=== PATIENT | male | born 1960 | race American Indian/Alaskan Native ===

== ENCOUNTER 2018-12-28 08:18 | Day surgery (SDC) | payer OTHER ==
--- NOTE | 2018-12-28 07:16 | Short Stay Summary ---
Short Stay Documentation Date of service: 12/28/18 - History H&P: obtained from office - Allergies and Medications Current Medications: Allergies No Known Allergies Allergy (Verified 12/24/18 10:14) Home Medications Medication Instructions Recorded Confirmed Last Taken Type Bimatoprost [Lumigan 0.01%] 1 drop OP QPM 12/24/18 12/24/18 Unknown History Bupropion HCl [Bupropion HCl Sr] 150 mg PO BID 12/24/18 12/24/18 Unknown History Ibuprofen [Motrin] 800 mg PO Q8HR PRN 12/24/18 12/24/18 Unknown History Active Medications Celecoxib (Celebrex) 200 mg PO PREOP NR Stop: 12/28/18 23:45 Gabapentin (Neurontin) 900 mg PO PREOP NR Stop: 12/28/18 23:45 Lactated Ringer's (Lactated Ringers) 1,000 mls @ 42 mls/hr IV DIRECT JACOB Cefazolin Sodium (Ancef/Sterile Water 2 Gm/20 Ml) 2 gm in 20 mls @ 80 mls/hr IV PREOP NR; Protocol Stop: 12/28/18 23:45 - Physical exam General appearance: no acute distress Lungs: Normal air movement Male Genitourinary: right inguinal hernia Neurological: Normal speech - Brief post op/procedure progress note Date of procedure: 12/28/18 (dictation:[id number]) Pre-op diagnosis: RIH Post-op diagnosis: other (BIH) Procedure: robotic assisted BIH repair IVF 1L EBL min Anesthesia: GETA Findings: bilateral inguinal hernias Surgeon: MISBAH JARAMILLO (Asst: Viviana Gonzalez) Estimated blood loss: minimal Pathology: list (cord lipoma) Specimen disposition: to lab Condition: stable - Hospital course Hospital course: required extended stay in PACU due to elevated BP. - Disposition Condition at discharge: Stable Disposition: DC-01 TO HOME OR SELFCARE Short Stay Discharge Plan Diet: regular Wound: open to air, keep clean and dry, per your surgeon's advice Special Instructions: no heavy lifting Additional Instructions: OPEN TO AIR. FOLLOW SURGEON INSTRUCTION. Post Operative Instructions No driving until cleared by surgeon. May shower tomorrow. Pat dry the wound or wounds. After surgery, start with a light diet. Consider having a liquid diet first. If you do well, you can advance to a regular diet as you feel comfortable. Apply an ice pack to the wound or wounds for 10-20 minutes at a time. Do this at least 4-5 times a day. You can do it more if he would like. Alternate the use of ibuprofen and Tylenol for the first 2 days. I want you to take these on a scheduled basis. Take 600 mg of ibuprofen every 6 hours. Take 500 mg of Tylenol every 6 hours. You should alternate these 2 medicines. In other words, beginning with the ibuprofen. After 3 hours, take the Tylenol. Keep alternating the 2 drugs every 3 hours. Do this on a scheduled basis for the first 2 days. After that, you can take them as needed. It is very important that you use the prescription pain medicine only for very severe pain. Do not take the prescription medicine before you try using the ibuprofen and Tylenol. We will call you in a couple of days to see how youre doing. If you have any questions or concerns, always feel free to call the clinic at any time. NO HEAVY LIFTING. WOUND:KEEP CLEAN AND DRY.OPEN TO AIR. FOLLOW SURGEON INSTRUCTION.DO NOT RUB OR SCRUB INCISION SITE. NO POOLS OR BATH. OR LAKES. CALL YOUR PCP FOR HIGH BLOOB PRESSURE. Follow up with: [facility] [Primary Care Provider] - 7 Days MISBAH JARAMILLO MD [Staff Physician] - 7 Days Forms: Outpatient Surgery DC Inst. Prescriptions: HYDROcodone/APAP 5-325 [[place] 5/325] 1 each PO Q6HR PRN #15 tablet PRN Reason: Pain , Severe (7-10)
[~2018-12-28 08:18] MED LIST: ANCEF/STERILE WATER 2 GM/20 ML 2 GM/20 ML SYRINGE IV NR; LACTATED RINGERS 1,000 ML IV SCH; NEURONTIN PO NR; TYLENOL PO ONE
--- NOTE | 2018-12-28 09:53 | Anesthesia Day of Surgery ---
Anesthesia Day of Surgery - Day of Surgery Patient Examined: Yes Patient H&P Reviewed: Yes Patient is NPO: Yes
[2018-12-28] MEDS ORDERED: DILAUDID ONE ×2 (09:54→13:44)
[2018-12-28] MEDS ORDERED: XYLOCAINE MPF 2% ONE (09:54)
[2018-12-28] MEDS ORDERED: ZEMURON IV ONE (09:54)
[2018-12-28] MEDS ORDERED: DIPRIVAN 10 MG/ML IV ONE (09:54)
--- NOTE | 2018-12-28 09:55 | Anesthesia Consultation ---
Anesthesia Consult and Med Hx Date of service: 12/28/18 - Airway Anesthetic Teeth Evaluation: Chipped ROM Head & Neck: Adequate Mental/Hyoid Distance: Adequate Mallampati Class: Class II Intubation Access Assessment: Good - Pre-Operative Health Status ASA Pre-Surgery Classification: ASA2 Proposed Anesthetic Plan: General - Pulmonary Hx Smoking: Yes (3 CIG. PER WEEK) Hx Sleep Apnea: No (TATO PRE SCREEN LOW RISK.) - Cardiovascular System Hx Hypertension: No - Central Nervous System Hx Back Pain: Yes (NECK PAIN) Hx Psychiatric Problems: Yes (Depression) - Hematic Hx Sickle Cell Disease: No - Other Systems Hx Cancer: No
[2018-12-28] MEDS ORDERED: TYLENOL ONE (10:09)
[2018-12-28] MEDS ORDERED: VERSED IV ONE (10:13)
[2018-12-28] MEDS ORDERED: XYLOCAINE 1% 20 mL ONE (10:28)
[2018-12-28] MEDS ORDERED: MARCAINE 0.5% INFILTRATI ONE ×2 (10:28→12:00)
[2018-12-28] MEDS ORDERED: BRIDION IV ONE (10:46)
[2018-12-28] MEDS ORDERED: SUBLIMAZE ONE (11:19)
[2018-12-28] MEDS ORDERED: XYLOCAINE 1% 20 mL INFILTRATI ONE (12:00)
[2018-12-28] MEDS ORDERED: NACL 0.9% IR ONE (12:01)
[2018-12-28] MEDS ORDERED: DECADRON ONE (13:00)
[2018-12-28] MEDS ORDERED: ZOFRAN ONE (13:00)
[2018-12-28] MEDS ORDERED: ZOFRAN IV PRN (13:39)
[2018-12-28] MEDS: DILAUDID IV PRN ×3 (13:43→14:40)
[2018-12-28] MEDS: APRESOLINE IV PRN ×2 (13:55→14:25)
[2018-12-28] MEDS ORDERED: APRESOLINE IV PRN (15:03)
[2018-12-28 16:28] VITALS: BP 159/69
--- NOTE | 2018-12-28 16:56 | Post Anesthesia Evaluation ---
- Post Anesthesia Evaluation Patient Participated: Yes Airway Patent: Yes Stable Respiratory Function: Yes Nausea/Vomiting: No Temp > 96.8F: Yes Pain Manageable: Yes Adequeate Hydration: Yes Anesthesia Complications: No Other Comments: BP significantly elevated in PACU requiring multiple doses IV antihypertensives to return to baseline. Patient reports hx "borderline" HTN followed by PCP but no formal diagnosis or treatment. BP returned to preop baseline and patient asymptomatic throughout. Advised to follow up with PCP as soon as possible.
--- NOTE | 2018-12-28 20:28 | Operative Report ---
PREOPERATIVE DIAGNOSIS: Right inguinal hernia. POSTOPERATIVE DIAGNOSIS: Bilateral inguinal hernias. PROCEDURE: Robotically assisted laparoscopic bilateral inguinal herniorrhaphy. ATTENDING PHYSICIAN: Ruddy Miles MD ANESTHESIA: General. ASSISTANT BRAND MANAGER: Viviana Gonzalez ANESTHESIA: General. ESTIMATED BLOOD LOSS: Minimal. FLUIDS: 1 liter. FINDINGS: Bilateral inguinal herniorrhaphies, right greater than the left. The patient had bilateral indirect hernias and a moderate sized direct hernia on the right. The patient had a large lipoma going through the direct hernia. SPECIMENS: Lipoma. DRAINS: None. COMPLICATIONS: None. DISPOSITION: Stable, transferred to Recovery Room. INDICATIONS: This is a 58-year-old male who presented with complaints of symptomatic right inguinal bulge. The patient was assessed to have a reducible inguinal hernia. The patient was assessed to be in need for robotic repair. Procedure, risks and benefits were explained to the patient. Risks included but were not limited to infection, bleeding, pain, injury to surrounding structures, possible need for further procedures in the future. The patient understood and consented. OPERATIVE NOTE: The patient was brought to the operating room and placed on the table in supine position. After adequate general anesthesia was established, the patient was prepped and draped in the usual sterile fashion. Antibiotics had been given. SCDs were placed. Timeout was called. I began by placing a Veress needle in the left upper quadrant. I was able to insufflate on the first attempt. This was replaced with a 5 mm port inserted using the Optiview technique. We entered the peritoneal cavity safely. There was no injury to the underlying structures. Under direct visualization, we then placed additional ports. A 12 mm port in the midline superior to the umbilicus and two 8 mm ports about 10 cm away on either side. We saw the inguinal defects as previously mentioned. There were no incarcerated contents. The patient was placed in Trendelenburg position. Mesh sutures and Ray-Shailesh were inserted. Subsequently, we docked the robot. I began by creating a peritoneal flap on the right side. Dissection was carried down to the inguinal region. There were extensive adhesions in that area that I had to take down carefully. We were able to identify multiple lipomas that we completely reduced and resected. We skeletonized the cord structures very nicely. There were no other herniated contents that we could tell. We had dissected Oscar's ligament very nicely. We had a very nice lateral dissection. The peritoneal flap was dissected all the way down to its junction with the medial umbilical ligament. At this point, the mesh was laid in place. It was secured to the anterior abdominal wall and to Oscar's ligament with 2-0 Vicryl suture. It laid very nicely. At this point, I felt it would be best to proceed to the left side and do that dissection and then closed the flap all at once when we were able to desufflate the abdomen slightly. The same procedure was done on the right. The preperitoneal flap was created. Here the dissection was easier as we did not have any herniated contents. Again, we dissected out the cord structures, Oscar's ligament and lateral space. The flap was dissected back all the way until the junction with the medial umbilical ligament. The mesh was laid in place and secured to Oscar's ligament and to the anterior abdominal wall with 2-0 Vicryl. At this point, both sides had excellent hemostasis. Mesh laid very nicely in both sides. I then closed the defects on either side with a 3-0 V-Loc sutures. The peritoneum closed very nicely. At this point, we had no other issues. Everything looked good. We then converted back to a laparoscopic case, removed the needles and gauze. We also removed all of the lipomas and sent them to pathology for evaluation. We closed the 12 mm port site with Darrell-Michelle fascial closure device using a 0 Vicryl stitch. Additional local was injected into all of the sites. A 4-0 Monocryl was used to close the skin sites with subcuticular stitches. Skin was cleaned and dried. Dermabond was placed. The patient tolerated the procedure well. There were no complications. All counts were correct at the end of the case. I examined the scrotal area. Both testicles were in normal position. There was not excessive amount of air in either side. JOB# [id number] LESLI/AMANDA MARQUEZ
== END 2018-12-28 17:10 | disposition home or self-care (01) ==
LOC: OR 08:18
PROVIDERS: ATTEND Surgery
DX: K40.20 Bilateral inguinal hernia, without obstruction or gangrene, not specified as recurrent (principal); D17.6 Benign lipomatous neoplasm of spermatic cord; H40.9 Unspecified glaucoma; M19.90 Unspecified osteoarthritis, unspecified site; F32.9 Major depressive disorder, single episode, unspecified; F17.210 Nicotine dependence, cigarettes, uncomplicated; Z79.899 Other long term (current) drug therapy
CPT/HCPCS: 49650; 88304; C1781; J0360; J0690; J1100; J1170; J2250; J2405; J2704; J3010; J7120; S2900